=== PATIENT | female | born 1970 | race Caucasian/White ===

== ENCOUNTER → 2023-07-24 11:16 | Outpatient (REF) | payer BC, SELFPAY | LOC: WDC 11:16 | PROVIDERS: ATTENDING PHYSICIAN Family Medicine | DX: Z12.31 Encounter for screening mammogram for malignant neoplasm of breast (principal) | CPT/HCPCS: 77063; 77067 ==

== ENCOUNTER → 2024-07-24 12:15 | Outpatient (REF) | payer BC, SELFPAY | LOC: WDC 12:15 | PROVIDERS: ATTENDING PHYSICIAN Nurse Practitioner Adult Health; FAMILY PHYSICIAN Family Medicine | DX: Z12.31 Encounter for screening mammogram for malignant neoplasm of breast (principal) | CPT/HCPCS: 77063; 77067 ==

== ENCOUNTER 2024-09-18 06:31 | Day surgery (SDC) | payer BC, SELFPAY ==
[2024-09-18 07:22] VITALS: BMI 47.0
[2024-09-18 07:24] VITALS: BP 143/84
[2024-09-18] MEDS: NORMOSOL-R/PLASMALYTE-A 1000 IV (07:35)
[2024-09-18 07:36] LABS: Glucose - Point of Care 329 mg/dl (70-99)
--- NOTE | 2024-09-18 07:42 | W.SUR.PREOP ---
Pre-Operative Surgical Note
-
I have examined this patient prior to the performance of the scheduled procedure.
The patient's condition is unchanged from the time of the current History and
Physical and the patient is able to undergo the scheduled procedure.
--- NOTE | 2024-09-18 09:12 | W.IMMPOSTOP ---
Surgical Immed Post Op Note
-
Primary Surgeon: Ky Quintanilla MD
Assisting Surgeon: None
Pre-op Diagnosis: Left upper back epidermal cyst, abdominal wall lipomas x 3
Post-op Diagnosis: Same
Procedure Performed:
1. Excision of the left upper back epidermal cyst
2. Excision of abdominal wall lipomas x 3
Anesthesia Type: General
Specimen / Cultures:
1. Left upper back epidermal cyst
2. Left upper quadrant abdominal wall lipoma (superior)
3. Left upper quadrant abdominal wall lipoma (inferior)
4. Right upper quadrant abdominal wall lipoma
Estimated Blood Loss: 3 cc
Complications: None
Operative Findings: 1.5 cm left upper back epidermal cyst excised completely. Four abdominal wall unencapsulated lipomas identified and removed through 3 incisions. All incisions closed with 3-0 Vicryl followed by Dermabond.
[2024-09-18 09:15] VITALS: BP 148/89
--- NOTE | 2024-09-18 09:16 | OR.RPT ---
Operative Report
Operative Report
Patient Name: Alicia Chapman
: 1970
Date of Operation: 09/18/2024
Primary Surgeon: Ky Quintanilla MD
Co Founder And Ceo: PAUL Cordoav
Pre-op Diagnosis: Left upper back epidermal cyst, abdominal wall lipomas x 3
Post-op Diagnosis: Same
Procedure Performed:
1. Excision of the left upper back epidermal cyst
2. Excision of abdominal wall lipomas x 3
Anesthesia Type: General
Specimen / Cultures:
1. Left upper back epidermal cyst
2. Left upper quadrant abdominal wall lipoma (superior)
3. Left upper quadrant abdominal wall lipoma (inferior)
4. Right upper quadrant abdominal wall lipoma
Estimated Blood Loss: 3 cc
Anesthesia: MAC
Indication for surgery:
This is a 53-year-old female who presented to our office with multiple abdominal wall subcutaneous lesions on her abdominal wall as well as 1 on her left upper back. After evaluation in the office they were diagnosed with multiple abdominal wall
lipomas as well as an epidermal cyst of her left upper back. After discussion of risk benefits and alternatives they elected and were consented for surgery.
Operative Findings: 1.5 cm left upper back epidermal cyst excised completely. Four abdominal wall unencapsulated lipomas identified and removed through 3 incisions. All incisions closed with 3-0 Vicryl followed by Dermabond.
Details of the operation:
The patient was brought to the operating room a placed in the left lateral decubitus position. After appropriate sedation by anesthesia, the area of the back was prepped and draped in the usual fashion. An elliptical incision over natural skin
lines was made over the mass and carried down through the subcutaneous tissue. The the cyst was identified and dissected from the surrounding healthy tissue without violation of the capsule. The cavity was irrigated and then closed in layers with
3-0 Vicryl suture followed by Dermabond. We then rotated the patient into the supine position and the abdominal wall was prepped and draped in the usual fashion. Her previously marked incisions were then serially anesthetized with Marcaine,
incised with a 15 blade scalpel and dissection proceeded serially at each site. A left upper quadrant superior site had a 4 cm unencapsulated lipoma. At the left upper quadrant inferior site had two unencapsulated lipomas measuring 4 and 3 cm
respectively. Finally the right upper quadrant site had a 4 cm unencapsulated lipoma. All incisions were then irrigated and hemostasis was achieved. All wounds were then closed in layers with 3-0 Vicryl sutures followed by Dermabond. All counts
were correct at the end of procedure. The patient was then transferred to the PACU for recovery.
I was the attending physician and performed the procedure with assistance of the PA above. The assistance of PAUL Cordova was required due to the complexity of the procedure. During the procedure Claire assisted with retraction, resection, and
closure of the wound. I was present for all portions of the case.
Ky Quintanilla MD
[2024-09-18 09:30] VITALS: BP 143/89
[2024-09-18 09:45] VITALS: BP 134/72
== END 2024-09-18 10:05 | disposition home or self-care (01) ==
LOC: SDS 06:31
PROVIDERS: ATTENDING PHYSICIAN Surgery
DX: D17.1 Benign lipomatous neoplasm of skin and subcutaneous tissue of trunk (principal); L72.0 Epidermal cyst
CPT/HCPCS: 21931; 11402; 82962; 88304